=== PATIENT | male | born 1980 | race Two or more races ===

== ENCOUNTER 2019-01-01 17:53 | Emergency (ER) | payer SELFPAY ==
[~2019-01-01] VITALS: Ht 177.8 cm; Wt 99.8 kg
[2019-01-01] MEDS ORDERED: IPRATROPIUM BROM 0.5 MG/2.5ML INH SOL HHN ONE (19:30)
[2019-01-01] MEDS ORDERED: methylPREDNISolone SOD SUCC 125 MG/2 ML VL IV ONE (19:30)
[2019-01-01] MEDS ORDERED: ALBUTEROL SULF 2.5 MG/0.5ML(0.5%) NEB SOLN HHN ONE (19:30)
[2019-01-01 20:08] LABS: Basophils # (auto) 0 uL; Basophils % (auto) 0.2 % (0.0-2.0); Eosinophils # (auto) 0 uL; Eosinophils % (auto) 0.5 % (0.0-7.0); Hematocrit 48.9 % (41.0-53.0); Hemoglobin 16.6 g/dL (13.5-17.5); Lymphocytes # (auto) 2.1 uL; Lymphocytes % (auto) 23.3 % (10.0-50.0); Mean Corpuscular Hemoglobin 31.6 pg (28.0-32.0); Mean Corpuscular Hgb Conc. 34.1 g/dL (32.0-36.0); Mean Corpuscular Volume 92.9 fL (80.0-100.0); Monocytes # (auto) 0.5 uL; Monocytes % (auto) 5.3 % (0.0-12.0); Neutrophils # (auto) 6.5 uL; Neutrophils % (auto) 70.7 % (37.0-80.0); Platelet Count (auto) 209 10^3/uL (140-450); Red Blood Cells 5.26 10^6/uL (4.5-5.90); Red Cell Distribution Width 13.2 % (11.8-14.3); White Blood Cell 9.1 10^3/uL (4.4-10.8)
[2019-01-01 20:12] VITALS: BP 151/73
[2019-01-01 20:19] LABS: Albumin 3.9 g/dL (3.4-5.0); Anion Gap 10 (5-15); Blood Urea Nitrogen 10 mg/dL (7-18); Calcium 9.2 mg/dL (8.5-10.1); Carbon Dioxide 23 mmol/L (21-32); Chloride 107 mmol/L (98-107); Glucose 104 mg/dL (74-106); Potassium 3.3 mmol/L (3.5-5.1); Sodium 140 mmol/L (136-145)
[2019-01-01 20:30] LABS: Alanine Aminotransferase 31 U/L (16-61); Alkaline Phosphatase 46 U/L (45-117); Aspartate Aminotransferase 17 U/L (15-37); BUN/Creatinine Ratio 10.6; Bilirubin, Total 0.6 mg/dL (0.2-1.0); GFR African American 115 mL/min; GFR Non-African American 95 mL/min; Total Protein 8.7 g/dL (6.4-8.2)
[2019-01-01] MEDS ORDERED: MORPHINE SULFATE 4 MG/ML SYR/VIAL IV ONE (21:00)
[2019-01-01] MEDS ORDERED: ONDANSETRON HCL 4 MG/2 ML VIAL IV ONE (21:00)
== END 2019-01-01 21:35 | disposition left against medical advice (07) ==
LOC: ER 17:53
DX: J44.1 Chronic obstructive pulmonary disease with (acute) exacerbation (principal); I12.0 Hypertensive chronic kidney disease with stage 5 chronic kidney disease or end stage renal disease; N18.6 End stage renal disease; E07.9 Disorder of thyroid, unspecified
CPT/HCPCS: 36415; 71046; 80053; 83880; 84484; 85025; 93005; 94644; 94761; 96374; 99285; J2930; J7611; J7644

== ENCOUNTER 2021-08-01 19:38 | Emergency (ER) | payer MEDICARE, MEDICAID ==
[~2021-08-01] VITALS: Ht 177.8 cm; Wt 117.9 kg
[2021-08-01 19:40] VITALS: BP 115/85
[2021-08-01] MEDS ORDERED: IBUP800T27 PO (22:29)
[2021-08-01] MEDS ORDERED: HYDROcodone-ACET 10/325MG TAB PO ONE (22:30)
== END 2021-08-01 22:46 | disposition home or self-care (01) ==
LOC: ER 19:38 → EDBD 19:38 → ER 22:46
DX: S02.2XXA Fracture of nasal bones, initial encounter for closed fracture (principal); S00.83XA Contusion of other part of head, initial encounter; I12.0 Hypertensive chronic kidney disease with stage 5 chronic kidney disease or end stage renal disease; N18.6 End stage renal disease; J44.9 Chronic obstructive pulmonary disease, unspecified; E03.9 Hypothyroidism, unspecified; Z79.1 Long term (current) use of non-steroidal anti-inflammatories (NSAID); Y04.2XXA Assault by strike against or bumped into by another person, initial encounter; Y93.89 Activity, other specified; Y92.89 Other specified places as the place of occurrence of the external cause; Y99.8 Other external cause status
CPT/HCPCS: 70160; 70450; 70486

== ENCOUNTER 2022-07-05 18:01 | Inpatient (IN) | payer MEDICARE, MEDICAID ==
[~2022-07-05] VITALS: Ht 177.8 cm; Wt 127.0 kg
[~2022-07-05 18:01] MED LIST: IBUP800T27 PO
[2022-07-05 19:00] LABS: Basophils # (auto) 0 10 ^3/uL (0-0.2); Basophils % (auto) 0.4 % (0.0-2.0); Eosinophils # (auto) 0.2 10 ^3/uL (0-0.8); Eosinophils % (auto) 2.5 % (0.0-7.0); Hematocrit 47.7 % (41.0-53.0); Hemoglobin 16.3 g/dL (13.5-17.5); Lymphocytes # (auto) 2.2 10 ^3/uL (0.4-5.4); Lymphocytes % (auto) 28.8 % (10.0-50.0); Mean Corpuscular Hemoglobin 33.6 pg (28.0-32.0); Mean Corpuscular Hgb Conc. 34.1 g/dL (32.0-36.0); Mean Corpuscular Volume 98.5 fL (80.0-100.0); Monocytes # (auto) 0.8 10 ^3/uL (0-1.3); Monocytes % (auto) 10.1 % (0.0-12.0); Neutrophils # (auto) 4.5 10 ^3/uL (1.6-8.6); Neutrophils % (auto) 58.2 % (37.0-80.0); Nucleated Red Blood Cells % 0.2 %; Red Blood Cells 4.84 10^6/uL (4.5-5.90); Red Cell Distribution Width 13.6 % (11.8-14.3); White Blood Cell 7.7 10^3/uL (4.4-10.8)
[2022-07-05 19:21] LABS: Albumin 4.2 g/dL (3.4-5.0); Calcium 9.1 mg/dL (8.5-10.1); Potassium 4.4 mmol/L (3.5-5.1)
[2022-07-05 19:25] LABS: Bilirubin, Total 0.4 mg/dL (0.2-1.0); Total Protein 8.4 g/dL (6.4-8.2)
[2022-07-05] MEDS ORDERED: dilTIAZem 25 MG/5 ML VIAL IV ONE (20:45)
[2022-07-05] MEDS ORDERED: SODIUM CHLORIDE 0.9% 1,000 ML IV ONE (20:45)
[2022-07-06] MEDS: MORPHINE SULFATE 4 MG/ML SYR/VIAL IV PRN ×3 (00:09→16:42)
[2022-07-06] MEDS ORDERED: HYDROcodone-ACET 5/325MG TAB PO PRN (04:45)
[2022-07-06] MEDS ORDERED: TEMAZEPAM 15 MG CAP PO PRN (04:45)
[2022-07-06] MEDS ORDERED: NITROGLYCERIN 0.4 MG SL TAB SL PRN (04:45)
[2022-07-06] MEDS ORDERED: MORPHINE SULFATE INJ 2 MG/ml SYRG IV PRN (04:45)
[2022-07-06] MEDS ORDERED: ACETAMINOPHEN 325 MG TAB PO PRN (04:45)
[2022-07-06] MEDS ORDERED: ALBUTEROL SULF 2.5 MG/0.5ML(0.5%) NEB SOLN NEB PRN (04:45)
[2022-07-06] MEDS ORDERED: ONDANSETRON HCL 4 MG/2 ML VIAL IV PRN (04:45)
[2022-07-06] MEDS: LEVOTHYROXINE SODIUM 25 MCG TAB PO SCH (06:41)
[2022-07-06] MEDS ORDERED: ADENOSINE 106 MG in GIVE UN-DILUTED 0 ML IV STA (08:59)
[2022-07-06 09:16] LABS: Magnesium 2.3 mg/dL (1.6-2.6)
[2022-07-06] MEDS: PANTOPRAZOLE 40 MG TAB PO SCH (10:13)
[2022-07-06] MEDS: lamoTRIgine 25 MG TAB PO SCH (10:13)
[2022-07-06] MEDS: ASPirin 81 mg TAB PO SCH (10:13)
[2022-07-06] MEDS: ENOXAPARIN SOD 40 MG/0.4 ML SYRINGE SC SCH (10:13)
[2022-07-06] MEDS: METOPROLOL TARTRATE 25 MG TAB PO SCH ×2 (10:14→21:11)
[2022-07-06] MEDS: DULoxetine HCL 30 MG CAP PO SCH ×2 (10:14→21:11)
[2022-07-06] MEDS ORDERED: DULO60CA PO (11:29)
[2022-07-06] MEDS ORDERED: MORP1TAB14 PO (11:29)
[2022-07-06] MEDS ORDERED: IPRATROPIUM BROM 0.5 MG/2.5ML INH SOL NEB PRN (11:45)
[2022-07-06] MEDS: MORPHINE SULF 30 mg ER tab PO SCH ×2 (12:11→21:11)
[2022-07-06] MEDS ORDERED: DULO60CA (14:26)
[2022-07-06] MEDS ORDERED: LAMO25TA27 PO (14:26)
[2022-07-06] MEDS ORDERED: LEVO75TA6 PO (14:26)
[2022-07-06] MEDS ORDERED: MORP30TA PO (14:26)
[2022-07-06 14:44] VITALS: BP 128/85
[2022-07-06 16:44] VITALS: BP 128/88
[2022-07-06 20:00] VITALS: BP 128/88
[2022-07-06] MEDS: ATORVASTATIN 20 MG TAB PO SCH (21:11)
[2022-07-06 22:00] VITALS: BP 123/79
[2022-07-07] MEDS: MORPHINE SULFATE 4 MG/ML SYR/VIAL IV PRN ×4 (02:48→20:04)
[2022-07-07 05:00] VITALS: BP 124/61
[2022-07-07] MEDS: BUDESONIDE (INHALATION) 0.5 MG/2 ML NEB NEB SCH ×2 (06:24→21:46)
[2022-07-07] MEDS: LEVALBUTEROL HCL 1.25 MG/3 ML NEB NEB PRN (06:24)
[2022-07-07] MEDS: LEVOTHYROXINE SODIUM 25 MCG TAB PO SCH (06:25)
[2022-07-07 06:27] LABS: Basophils # (auto) 0 10 ^3/uL (0-0.2); Basophils % (auto) 0.7 % (0.0-2.0); Eosinophils # (auto) 0.3 10 ^3/uL (0-0.8); Eosinophils % (auto) 5.6 % (0.0-7.0); Hematocrit 42.4 % (41.0-53.0); Hemoglobin 14.2 g/dL (13.5-17.5); Lymphocytes # (auto) 1.5 10 ^3/uL (0.4-5.4); Lymphocytes % (auto) 32.5 % (10.0-50.0); Mean Corpuscular Hemoglobin 33.4 pg (28.0-32.0); Mean Corpuscular Hgb Conc. 33.6 g/dL (32.0-36.0); Mean Corpuscular Volume 99.6 fL (80.0-100.0); Monocytes # (auto) 0.5 10 ^3/uL (0-1.3); Neutrophils # (auto) 2.3 10 ^3/uL (1.6-8.6); Neutrophils % (auto) 50.2 % (37.0-80.0); Nucleated Red Blood Cells % 0.1 %; Red Blood Cells 4.26 10^6/uL (4.5-5.90); Red Cell Distribution Width 13.4 % (11.8-14.3); White Blood Cell 4.6 10^3/uL (4.4-10.8)
[2022-07-07 06:37] LABS: Calcium 9.3 mg/dL (8.5-10.1); Potassium 3.9 mmol/L (3.5-5.1)
[2022-07-07 06:42] LABS: Albumin 3.5 g/dL (3.4-5.0); BUN/Creatinine Ratio 17.9 (10.0-20.0); Bilirubin, Total 0.8 mg/dL (0.2-1.0); Total Protein 7.2 g/dL (6.4-8.2)
[2022-07-07 08:47] VITALS: BP 119/74
[2022-07-07] MEDS: DULoxetine HCL 30 MG CAP PO SCH ×2 (08:52→22:25)
[2022-07-07] MEDS: ENOXAPARIN SOD 40 MG/0.4 ML SYRINGE SC SCH (08:52)
[2022-07-07] MEDS: MORPHINE SULF 30 mg ER tab PO SCH ×2 (08:53→22:23)
[2022-07-07] MEDS: lamoTRIgine 25 MG TAB PO SCH (08:53)
[2022-07-07] MEDS: ASPirin 81 mg TAB PO SCH (08:53)
[2022-07-07] MEDS: METOPROLOL TARTRATE 25 MG TAB PO SCH ×2 (08:53→22:25)
[2022-07-07] MEDS: PANTOPRAZOLE 40 MG TAB PO SCH (08:53)
[2022-07-07] MEDS ORDERED: methylPREDNISolone SOD SUCC 40 MG/ML VL IV SCH (10:00)
[2022-07-07] MEDS: diphenhdrAMINE HCL 50 MG/1 ML VL IV SCH ×2 (10:25→22:26)
[2022-07-07] MEDS: FAMOTIDINE (10MG/ML) 2ML VL IV SCH ×2 (10:25→22:00)
[2022-07-07 12:32] VITALS: BP 119/71
[2022-07-07 16:42] VITALS: BP 103/79
[2022-07-07 20:00] VITALS: BP 134/70
[2022-07-07] MEDS: ATORVASTATIN 20 MG TAB PO SCH (22:23)
[2022-07-07 23:05] VITALS: BP 134/70
[2022-07-08] VITALS (10 sets, daily range): BP systolic 114–145; BP diastolic 66–96
[2022-07-08] MEDS: MORPHINE SULFATE 4 MG/ML SYR/VIAL IV PRN ×3 (01:28→16:30)
[2022-07-08 05:58] LABS: Urine Bacteria FEW /hpf (None Seen); Urine Blood Negative /uL (Negative); Urine Specific Gravity 1.007 (1.001-1.035); Urine WBC <1 /hpf (0 - 3)
[2022-07-08 06:13] LABS: Alcohol, Urine < 3.0 mg/dL (0-10); Amphetamine Screen, Urine NEGATIVE (NEGATIVE); Barbiturate Scree,Urine NEGATIVE (NEGATIVE); Benzodiazephine Screen, Urine NEGATIVE (NEGATIVE); Cannabinoid Screen, Urine NEGATIVE (NEGATIVE); Cocaine Screen, Urine NEGATIVE (NEGATIVE); Opiate Scree,Urine POSITIVE (NEGATIVE); Phencyclidine Screen, Urine NEGATIVE (NEGATIVE)
[2022-07-08] MEDS: LEVOTHYROXINE SODIUM 25 MCG TAB PO SCH (06:33)
[2022-07-08 06:38] LABS: Basophils # (auto) 0 10 ^3/uL (0-0.2); Basophils % (auto) 0.2 % (0.0-2.0); Eosinophils # (auto) 0.1 10 ^3/uL (0-0.8); Hemoglobin 15.2 g/dL (13.5-17.5)
[2022-07-08 06:40] LABS: Eosinophils % (auto) 0.7 % (0.0-7.0); Hematocrit 43.6 % (41.0-53.0); Lymphocytes % (auto) 20.1 % (10.0-50.0); Mean Corpuscular Hemoglobin 34.2 pg (28.0-32.0); Mean Corpuscular Hgb Conc. 34.8 g/dL (32.0-36.0); Mean Corpuscular Volume 98.2 fL (80.0-100.0); Monocytes # (auto) 0.8 10 ^3/uL (0-1.3); Monocytes % (auto) 8.4 % (0.0-12.0); Neutrophils # (auto) 7.1 10 ^3/uL (1.6-8.6); Neutrophils % (auto) 70.6 % (37.0-80.0); Nucleated Red Blood Cells % 0.3 %; Red Blood Cells 4.44 10^6/uL (4.5-5.90); Red Cell Distribution Width 13.5 % (11.8-14.3)
[2022-07-08 06:51] LABS: Potassium 3.8 mmol/L (3.5-5.1)
[2022-07-08 07:04] LABS: BUN/Creatinine Ratio 18.1 (10.0-20.0); Calcium 8.9 mg/dL (8.5-10.1)
[2022-07-08 07:41] LABS: INR 1.06 (0.9-1.15); Partial Thromboplastin Time 25.4 sec (24.6-33.4)
[2022-07-08] MEDS ORDERED: LIDOCAINE 2%HCL (LOCAL ANESTH.) INJ 20ML MDV ONE (07:47)
[2022-07-08] MEDS ORDERED: IODIXANOL 320MG/ML 100ML BTL IV ONE (07:48)
[2022-07-08] MEDS ORDERED: ANGIOMAX 250 MG VIAL IV ONE (09:55)
[2022-07-08] MEDS ORDERED: VERAPAMIL 2.5MG/ML INJ 2ML VIAL IV ONE (09:55)
[2022-07-08] MEDS ORDERED: HEPARIN SODIUM (PORCINE) 5000 UNITS/ML 1ML VIAL ONE (09:55)
[2022-07-08] MEDS ORDERED: fentaNYL CITRATE 100 MCG/2 ML VL ONE (09:56)
[2022-07-08] MEDS ORDERED: SODIUM CHL 0.9% 0 ML ONE (09:56)
[2022-07-08] MEDS ORDERED: MIDAZOLAM HCL 2MG/2ML 2ml VIAL (1mg/ml) ONE (09:56)
[2022-07-08] MEDS ORDERED: SODIUM CHL 0.9% 50 ML ONE (09:57)
[2022-07-08] MEDS: BUDESONIDE (INHALATION) 0.5 MG/2 ML NEB NEB SCH ×2 (10:00→22:20)
[2022-07-08] MEDS: METOPROLOL TARTRATE 25 MG TAB PO SCH ×2 (10:00→22:48)
[2022-07-08] MEDS: MORPHINE SULF 30 mg ER tab PO SCH ×2 (10:00→22:49)
[2022-07-08] MEDS: ENOXAPARIN SOD 40 MG/0.4 ML SYRINGE SC SCH (10:00)
[2022-07-08] MEDS: DULoxetine HCL 30 MG CAP PO SCH ×3 (10:00→22:49)
[2022-07-08] MEDS ORDERED: FAMOTIDINE (10MG/ML) 2ML VL IV ONE (10:06)
[2022-07-08] MEDS ORDERED: diphenhdrAMINE HCL 50 MG/1 ML VL ONE (10:06)
[2022-07-08] MEDS: PANTOPRAZOLE 40 MG TAB PO SCH (12:21)
[2022-07-08] MEDS: ASPirin 81 mg TAB PO SCH (12:21)
[2022-07-08] MEDS: lamoTRIgine 25 MG TAB PO SCH (12:21)
[2022-07-08] MEDS: ATORVASTATIN 20 MG TAB PO SCH (22:49)
[2022-07-09] MEDS: MORPHINE SULFATE 4 MG/ML SYR/VIAL IV PRN ×5 (00:22→21:07)
[2022-07-09 05:00] VITALS: BP 112/75
[2022-07-09 06:24] LABS: Basophils # (auto) 0 10 ^3/uL (0-0.2); Eosinophils # (auto) 0.1 10 ^3/uL (0-0.8); Lymphocytes # (auto) 1.8 10 ^3/uL (0.4-5.4); Red Blood Cells 4.34 10^6/uL (4.5-5.90); Red Cell Distribution Width 13.4 % (11.8-14.3)
[2022-07-09 06:27] LABS: Basophils % (auto) 0.3 % (0.0-2.0); Eosinophils % (auto) 1.8 % (0.0-7.0); Hematocrit 43.6 % (41.0-53.0); Hemoglobin 14.9 g/dL (13.5-17.5); Lymphocytes % (auto) 23.8 % (10.0-50.0); Mean Corpuscular Hemoglobin 34.3 pg (28.0-32.0); Mean Corpuscular Hgb Conc. 34.2 g/dL (32.0-36.0); Mean Corpuscular Volume 100.5 fL (80.0-100.0); Monocytes # (auto) 0.6 10 ^3/uL (0-1.3); Monocytes % (auto) 8.1 % (0.0-12.0); Nucleated Red Blood Cells % 0.1 %; White Blood Cell 7.6 10^3/uL (4.4-10.8)
[2022-07-09] MEDS: BUDESONIDE (INHALATION) 0.5 MG/2 ML NEB NEB SCH ×2 (06:34→22:55)
[2022-07-09 06:35] LABS: Potassium 4.8 mmol/L (3.5-5.1)
[2022-07-09] MEDS: LEVOTHYROXINE SODIUM 25 MCG TAB PO SCH (06:37)
[2022-07-09 06:52] LABS: Albumin 3.8 g/dL (3.4-5.0); BUN/Creatinine Ratio 19.3 (10.0-20.0); Bilirubin, Total 0.6 mg/dL (0.2-1.0); Calcium 9.1 mg/dL (8.5-10.1); Total Protein 7.8 g/dL (6.4-8.2)
[2022-07-09 08:00] VITALS: BP 114/66
[2022-07-09 09:00] VITALS: BP 113/68
[2022-07-09] MEDS: ASPirin 81 mg TAB PO SCH (09:23)
[2022-07-09] MEDS: DULoxetine HCL 30 MG CAP PO SCH ×2 (09:25→22:42)
[2022-07-09] MEDS: MORPHINE SULF 30 mg ER tab PO SCH ×2 (09:25→23:00)
[2022-07-09] MEDS: METOPROLOL TARTRATE 25 MG TAB PO SCH ×2 (09:25→22:42)
[2022-07-09] MEDS: PANTOPRAZOLE 40 MG TAB PO SCH (09:26)
[2022-07-09] MEDS: lamoTRIgine 25 MG TAB PO SCH (09:27)
[2022-07-09] MEDS: ENOXAPARIN SOD 40 MG/0.4 ML SYRINGE SC SCH (09:27)
[2022-07-09 22:00] VITALS: BP 120/75
[2022-07-09] MEDS: ATORVASTATIN 20 MG TAB PO SCH (22:42)
[2022-07-09] MEDS: LEVALBUTEROL HCL 1.25 MG/3 ML NEB NEB PRN (22:55)
[2022-07-10 05:00] VITALS: BP 106/81
[2022-07-10 05:45] LABS: Basophils # (auto) 0.1 10 ^3/uL (0-0.2); Lymphocytes # (auto) 2.3 10 ^3/uL (0.4-5.4); Mean Corpuscular Volume 99.1 fL (80.0-100.0); White Blood Cell 7.1 10^3/uL (4.4-10.8)
[2022-07-10 05:48] LABS: Eosinophils # (auto) 0.2 10 ^3/uL (0-0.8); Eosinophils % (auto) 3.2 % (0.0-7.0); Hematocrit 42.1 % (41.0-53.0); Hemoglobin 14.4 g/dL (13.5-17.5); Lymphocytes % (auto) 32.7 % (10.0-50.0); Mean Corpuscular Hemoglobin 33.9 pg (28.0-32.0); Mean Corpuscular Hgb Conc. 34.2 g/dL (32.0-36.0); Monocytes % (auto) 13.6 % (0.0-12.0); Neutrophils # (auto) 3.5 10 ^3/uL (1.6-8.6); Neutrophils % (auto) 49.5 % (37.0-80.0); Nucleated Red Blood Cells % 0.2 %; Red Blood Cells 4.25 10^6/uL (4.5-5.90); Red Cell Distribution Width 13.2 % (11.8-14.3)
[2022-07-10] MEDS: MORPHINE SULFATE 4 MG/ML SYR/VIAL IV PRN (05:49)
[2022-07-10] MEDS: LEVOTHYROXINE SODIUM 25 MCG TAB PO SCH (05:49)
[2022-07-10 06:32] LABS: BUN/Creatinine Ratio 20.5 (10.0-20.0); Potassium 4.5 mmol/L (3.5-5.1)
[2022-07-10 06:34] LABS: Albumin 3.8 g/dL (3.4-5.0); Bilirubin, Total 0.6 mg/dL (0.2-1.0); Total Protein 7.7 g/dL (6.4-8.2)
[2022-07-10] MEDS ORDERED: ASPI-325 PO (07:28)
[2022-07-10] MEDS ORDERED: ATOR20TA50 PO (07:28)
[2022-07-10] MEDS ORDERED: MET25T PO (07:28)
[2022-07-10] MEDS ORDERED: PANT40T PO (07:28)
[2022-07-10 09:00] VITALS: BP 137/88
[2022-07-10] MEDS: DULoxetine HCL 30 MG CAP PO SCH (09:18)
[2022-07-10] MEDS: lamoTRIgine 25 MG TAB PO SCH (09:19)
[2022-07-10] MEDS: PANTOPRAZOLE 40 MG TAB PO SCH (09:20)
[2022-07-10] MEDS: ASPirin 81 mg TAB PO SCH (09:20)
[2022-07-10] MEDS: MORPHINE SULF 30 mg ER tab PO SCH (09:20)
[2022-07-10] MEDS: METOPROLOL TARTRATE 25 MG TAB PO SCH (09:23)
[2022-07-10] MEDS: ENOXAPARIN SOD 40 MG/0.4 ML SYRINGE SC SCH (09:23)
[2022-07-10] MEDS: BUDESONIDE (INHALATION) 0.5 MG/2 ML NEB NEB SCH (09:36)
[2022-07-10 09:49] VITALS: BP 137/88
== END 2022-07-10 12:43 | disposition home or self-care (01) | DRG 286 ==
LOC: ER 18:01 → EDBD 18:01 → TELE 07-06 04:34 → TELE-WESTW 07-06 13:22
PROVIDERS: ADMIT Nurse Practitioner; ATTEND Internal Medicine
PROC: 4A023N7 Measurement of Cardiac Sampling and Pressure, Left Heart, Percutaneous Approach (ICD-10-PCS; principal; 2022-07-08)
PROC: B211YZZ Fluoroscopy of Multiple Coronary Arteries using Other Contrast (ICD-10-PCS; 2022-07-08)
PROC: B215YZZ Fluoroscopy of Left Heart using Other Contrast (ICD-10-PCS; 2022-07-08)
DX: I25.10 Atherosclerotic heart disease of native coronary artery without angina pectoris (principal); J96.21 Acute and chronic respiratory failure with hypoxia; J44.1 Chronic obstructive pulmonary disease with (acute) exacerbation; I48.0 Paroxysmal atrial fibrillation; Z68.39 Body mass index [BMI] 39.0-39.9, adult; R07.89 Other chest pain; R00.0 Tachycardia, unspecified; E03.9 Hypothyroidism, unspecified; E78.5 Hyperlipidemia, unspecified; G89.4 Chronic pain syndrome; I10 Essential (primary) hypertension; Z99.81 Dependence on supplemental oxygen; E66.01 Morbid (severe) obesity due to excess calories; Z86.16 Personal history of COVID-19; M54.9 Dorsalgia, unspecified; R73.9 Hyperglycemia, unspecified; R74.01 Elevation of levels of liver transaminase levels; Z80.8 Family history of malignant neoplasm of other organs or systems; Z83.3 Family history of diabetes mellitus; Z20.822 Contact with and (suspected) exposure to COVID-19
CPT/HCPCS: 36415; 71045; 78452; 80048; 80053; 80061; 80307; 81001; 83036; 83735; 83880; 84443; 84484; 85025; 85610; 85730; 86850; 86900; 86901; 93005; 93017; 93306; 94640; 96361; 96365; 96372; 96375; C1887; G0378; J0153; J2250; J3490; Q9967

== ENCOUNTER 2022-07-11 13:18 | Emergency (ER) | payer MEDICARE, MEDICAID ==
[~2022-07-11] VITALS: Ht 177.8 cm; Wt 131.0 kg
[~2022-07-11 13:18] MED LIST changes: +ASPI-325 PO; +ATOR20TA50 PO; +DULO60CA PO; -IBUP800T27 PO; +LAMO25TA27 PO; +LEVO75TA6 PO; +MET25T PO; +MORP1TAB14 PO; +PANT40T PO
[2022-07-11 14:30] LABS: Basophils # (auto) 0 10 ^3/uL (0-0.2); Basophils % (auto) 0.4 % (0.0-2.0); Eosinophils # (auto) 0.2 10 ^3/uL (0-0.8); Eosinophils % (auto) 2.1 % (0.0-7.0); Hematocrit 41.5 % (41.0-53.0); Hemoglobin 13.8 g/dL (13.5-17.5); Lymphocytes # (auto) 2.1 10 ^3/uL (0.4-5.4); Lymphocytes % (auto) 28.5 % (10.0-50.0); Mean Corpuscular Hemoglobin 33.4 pg (28.0-32.0); Mean Corpuscular Hgb Conc. 33.4 g/dL (32.0-36.0); Monocytes # (auto) 0.8 10 ^3/uL (0-1.3); Monocytes % (auto) 10.8 % (0.0-12.0); Neutrophils # (auto) 4.2 10 ^3/uL (1.6-8.6); Neutrophils % (auto) 58.2 % (37.0-80.0); Nucleated Red Blood Cells % 0.2 %; Red Blood Cells 4.15 10^6/uL (4.5-5.90); Red Cell Distribution Width 13.2 % (11.8-14.3); White Blood Cell 7.2 10^3/uL (4.4-10.8)
[2022-07-11 14:46] LABS: Alanine Aminotransferase 65 U/L (16-61); Albumin 3.8 g/dL (3.4-5.0); Anion Gap 6 (5-15); Aspartate Aminotransferase 27 U/L (15-37); BUN/Creatinine Ratio 15.7 (10.0-20.0); Blood Urea Nitrogen 14 mg/dL (7-18); Calcium 8.5 mg/dL (8.5-10.1); Carbon Dioxide 27 mmol/L (21-32); Chloride 103 mmol/L (98-107); GFR African American 121 mL/min; GFR Non-African American 100 mL/min; Glucose 110 mg/dL (74-106); Potassium 4.1 mmol/L (3.5-5.1); Sodium 136 mmol/L (136-145)
[2022-07-11 14:48] LABS: Alkaline Phosphatase 37 U/L (45-117); Bilirubin, Total 0.6 mg/dL (0.2-1.0); Total Protein 7.3 g/dL (6.4-8.2)
[2022-07-11 23:25] LABS: Urine Bacteria NONE SEEN /hpf (None Seen); Urine Blood Negative /uL (Negative); Urine WBC <1 /hpf (0 - 3)
[2022-07-12] MEDS ORDERED: PERCOT PO (00:21)
[2022-07-12] MEDS ORDERED: NITR-87 PO (00:21)
[2022-07-12] MEDS ORDERED: ONDA-144 PO (00:21)
[2022-07-12] MEDS ORDERED: DexAMETHasone SOD PHOS 10MG/1ML VIAL INJ IM ONE (00:30)
[2022-07-12] MEDS ORDERED: cefTRIAXone SOD 1,000 MG VL IM ONE (00:30)
[2022-07-12 00:51] VITALS: BP 136/86
== END 2022-07-12 00:24 | disposition home or self-care (01) ==
LOC: ER 13:18
DX: L03.114 Cellulitis of left upper limb (principal); N39.0 Urinary tract infection, site not specified; J44.9 Chronic obstructive pulmonary disease, unspecified; I12.9 Hypertensive chronic kidney disease with stage 1 through stage 4 chronic kidney disease, or unspecified chronic kidney disease; N18.9 Chronic kidney disease, unspecified
CPT/HCPCS: 36415; 71045; 73200; 74176; 80053; 81001; 84484; 85025; 93005; 96372; 99285; J0696; J1100

== ENCOUNTER 2023-02-06 13:19 | Inpatient (IN) | payer MEDICARE, MEDICAID ==
[~2023-02-06] VITALS: Ht 177.8 cm; Wt 122.6 kg
[~2023-02-06 13:19] MED LIST changes: -DULO60CA PO; +DULO60CA41 PO; +NITR-87 PO; +ONDA-144 PO; +PERCOT PO
[2023-02-06 17:59] LABS: Basophils # (auto) 0 10 ^3/uL (0-0.2); Basophils % (auto) 0.3 % (0.0-2.0); Eosinophils # (auto) 0.2 10 ^3/uL (0-0.8); Eosinophils % (auto) 2.3 % (0.0-7.0); Hemoglobin 14.3 g/dL (13.5-17.5); Lymphocytes # (auto) 1.5 10 ^3/uL (0.4-5.4); Lymphocytes % (auto) 16.7 % (10.0-50.0); Mean Corpuscular Hemoglobin 33.9 pg (28.0-32.0); Mean Corpuscular Hgb Conc. 34.1 g/dL (32.0-36.0); Mean Corpuscular Volume 99.5 fL (80.0-100.0); Monocytes # (auto) 1.2 10 ^3/uL (0-1.3); Monocytes % (auto) 13.7 % (0.0-12.0); Neutrophils # (auto) 6.1 10 ^3/uL (1.6-8.6); Red Blood Cells 4.22 10^6/uL (4.5-5.90); Red Cell Distribution Width 13.1 % (11.8-14.3)
[2023-02-06 18:12] LABS: Alanine Aminotransferase 23 U/L (7-40); Albumin 3.1 g/dL (3.2-4.8); Alkaline Phosphatase 34 U/L (46-116); Anion Gap 12 (5-15); Aspartate Aminotransferase 13 U/L (13-40); Bilirubin, Total 0.5 mg/dL (0.2-1.0); Carbon Dioxide 21 mmol/L (20-30); Chloride 104 mmol/L (98-107); Glucose 73 mg/dL (74-106); Potassium 3.4 mmol/L (3.5-5.1); Sodium 137 mmol/L (136-145); Total Protein 4.9 g/dL (5.7-8.2)
[2023-02-06 18:20] LABS: CRP High Sensitivity 11.46 mg/dL (<1.0)
[2023-02-06 18:32] LABS: BUN/Creatinine Ratio 11.1 (10.0-20.0); Blood Urea Nitrogen < 5 mg/dL (9-23)
[2023-02-06] MEDS ORDERED: KETOROLAC TROMETH 30 MG/ML 1ML VIAL IV ONE (19:30)
[2023-02-06] MEDS ORDERED: ALBUTEROL MEDNEB 2.5 mg/3ml NEB NEB PRN (19:30)
[2023-02-06] MEDS ORDERED: ACETAMINOPHEN 325 MG TAB PO PRN (19:30)
[2023-02-06] MEDS ORDERED: NITROGLYCERIN 0.4 MG SL TAB SL PRN (19:30)
[2023-02-06] MEDS ORDERED: KETOROLAC TROMETH 30 MG/ML 1ML VIAL IV PRN ×2 (19:30→22:45)
[2023-02-06] MEDS ORDERED: POTASSIUM EFFERVESENT TAB 25 MEQ PO ONE (19:30)
[2023-02-06] MEDS ORDERED: methylPREDNISolone SOD SUCC 125 MG/2 ML VL IV ONE (19:30)
[2023-02-06] MEDS ORDERED: HYDROcodone-ACET 5/325MG TAB PO PRN (19:30)
[2023-02-06] MEDS ORDERED: MORPHINE SULFATE INJ 2 MG/ml SYRG IV PRN (19:30)
[2023-02-06] MEDS ORDERED: CLINDAMYCIN 900MG IV 50 ML IV ONE (19:45)
[2023-02-06 19:49] VITALS: BP 150/102; PULSE 108; RESP 16; TEMP 97.4; O2SAT 95
[2023-02-06 19:56] LABS: Calcium 8.9 mg/dL (8.7-10.4)
[2023-02-06] MEDS: CALCIUM GLUC 1,000mg/50ml-NS 50 ML IV SCH ×2 (20:00→22:50)
[2023-02-06 20:02] LABS: Magnesium 1.8 mg/dL (1.6-2.6)
[2023-02-06 20:03] LABS: Phosphorus 4.5 mg/dL (2.4-5.1)
[2023-02-06 20:15] LABS: Triglycerides 74 mg/dL (< 150)
[2023-02-06 20:16] LABS: LDL Cholesterol 105 mg/dL (< 100)
[2023-02-06 20:17] LABS: Cholesterol 170 mg/dL (< 200); HDL Cholesterol 57 mg/dL (40-59)
[2023-02-06] MEDS: CLINDAMYCIN 900MG IV 50 ML IV SCH (21:37)
[2023-02-06] MEDS ORDERED: METOPROLOL TARTRATE 25 MG TAB PO SCH (22:00)
[2023-02-06] MEDS ORDERED: ATORVASTATIN 20 MG TAB PO SCH (22:00)
[2023-02-06] MEDS ORDERED: OXYCODONE W/ ACETAMINOPHEN 5/325MG TABLET PO SCH (22:00)
[2023-02-06 22:30] VITALS: PULSE 111; RESP 16; O2SAT 95
[2023-02-06] MEDS ORDERED: MORPHINE SULFATE INJ 2 MG/ml SYRG IV ONE (23:15)
[2023-02-07 03:00] VITALS: O2SAT 94
[2023-02-07] MEDS: SODIUM CHLORIDE 0.9% 1,000 ML IV SCH ×2 (03:47→08:47)
[2023-02-07] MEDS: CLINDAMYCIN 900MG IV 50 ML IV SCH (03:47)
[2023-02-07 05:22] VITALS: O2SAT 98
[2023-02-07 05:45] LABS: Basophils # (auto) 0 10 ^3/uL (0-0.2); Eosinophils # (auto) 0 10 ^3/uL (0-0.8); Lymphocytes # (auto) 0.9 10 ^3/uL (0.4-5.4); Monocytes # (auto) 0.2 10 ^3/uL (0-1.3)
[2023-02-07 05:48] LABS: Basophils % (auto) 0.1 % (0.0-2.0); Hematocrit 42.7 % (41.0-53.0); Hemoglobin 14.8 g/dL (13.5-17.5); Lymphocytes % (auto) 7.6 % (10.0-50.0); Mean Corpuscular Hemoglobin 34.5 pg (28.0-32.0); Mean Corpuscular Hgb Conc. 34.7 g/dL (32.0-36.0); Mean Corpuscular Volume 99.4 fL (80.0-100.0); Monocytes % (auto) 2.1 % (0.0-12.0); Neutrophils # (auto) 10.5 10 ^3/uL (1.6-8.6); Neutrophils % (auto) 90.2 % (37.0-80.0); Nucleated Red Blood Cells % 0.1 %; Red Cell Distribution Width 13.1 % (11.8-14.3); White Blood Cell 11.6 10^3/uL (4.4-10.8)
[2023-02-07 06:00] VITALS: O2SAT 94
[2023-02-07 06:00] LABS: Alanine Aminotransferase 38 U/L (7-40); Albumin 5.2 g/dL (3.2-4.8); Alkaline Phosphatase 40 U/L (46-116); Anion Gap 9 (5-15); Aspartate Aminotransferase 18 U/L (13-40); BUN/Creatinine Ratio 10.3 (10.0-20.0); Bilirubin, Total 0.9 mg/dL (0.2-1.0); Blood Urea Nitrogen 11 mg/dL (9-23); Calcium 9.9 mg/dL (8.5-10.1); Carbon Dioxide 28 mmol/L (20-30); Chloride 100 mmol/L (98-107); Glucose 143 mg/dL (74-106); Potassium 4.1 mmol/L (3.5-5.1); Sodium 137 mmol/L (136-145); Total Protein 8.5 g/dL (5.7-8.2)
[2023-02-07] MEDS ORDERED: LEVOTHYROXINE SODIUM 25 MCG TAB PO SCH (07:00)
[2023-02-07 08:21] VITALS: BP 120/73; PULSE 70; RESP 13
[2023-02-07] MEDS ORDERED: ENOXAPARIN SOD 40 MG/0.4 ML SYRINGE SC SCH (10:00)
[2023-02-07] MEDS ORDERED: PANTOPRAZOLE 40 MG TAB PO SCH (10:00)
[2023-02-07] MEDS ORDERED: ASPirin-EC 81 mg tab PO SCH (10:00)
[2023-02-07] MEDS ORDERED: lamoTRIgine 25 MG TAB PO SCH (10:00)
== END 2023-02-07 08:55 | disposition left against medical advice (07) | DRG 603 ==
LOC: ER 13:19 → TELE 19:29
PROVIDERS: ADMIT Nurse Practitioner Family; ATTEND Nurse Practitioner Family
DX: L03.113 Cellulitis of right upper limb (principal); I48.91 Unspecified atrial fibrillation; I10 Essential (primary) hypertension; G89.4 Chronic pain syndrome; E87.6 Hypokalemia; E83.51 Hypocalcemia; E66.01 Morbid (severe) obesity due to excess calories; E03.9 Hypothyroidism, unspecified; Z53.29 Procedure and treatment not carried out because of patient's decision for other reasons; J44.9 Chronic obstructive pulmonary disease, unspecified; Z82.49 Family history of ischemic heart disease and other diseases of the circulatory system; Z68.38 Body mass index [BMI] 38.0-38.9, adult; Z83.3 Family history of diabetes mellitus; Z99.81 Dependence on supplemental oxygen
CPT/HCPCS: 36415; 73080; 73200; 80053; 80061; 82310; 83735; 83970; 84100; 84443; 85025; 86141; 87040; 93005; 93971; 96365; 96375; G0378; J1885; J3490